=== PATIENT | male | born 1945 | race Caucasian/White ===

== ENCOUNTER 2024-06-24 08:56 | Emergency (ER) | payer MEDICARE, SELFPAY ==
[2024-06-24 09:00] VITALS: BP 124/62
--- NOTE | 2024-06-24 09:35 | ED.GENMED ---
History of Present Illness
<Ting Saleem PA-C - Last Filed: 06/25/24 01:14>
General
Chief Complaint: Fever
Source: patient
Exam Limitations: none
Time Seen by Provider: 06/24/24 09:14
Nursing documentation reviewed up to this point in time: agreed with
History of Present Illness
History of Present Illness:
Patient is a 78-year-old male with history hypertension, mitral valve repair, diverticulitis s/p colon resection presenting to the emergency department with 3 days of fever, chills, dry heaves, and diarrhea. Patient states dry heaves began
night shortly followed by fever on Tuesday. Fever has been as high as 101F at home. Patient also reports nonbloody diarrhea and vague upper abdominal pain. He has been unable to tolerate p.o. food/liquid since . has noticed a cough
over the past 2 days, as well.
No chest pain, shortness of breath, urinary symptoms.
No sick contacts. No recent travel.
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
Past History
<Ting Saleem PA-C - Last Filed: 06/25/24 01:14>
Past History
ED Past Medical History: HTN and Other
ED Past Surgical History: Cardiac (MV repair)
Social History
Tobacco: Non-smoker
Alcohol: None
Drug: None
Personal:
Living: with family
Employment: Retired
Review of Systems
<Ting Saleem PA-C - Last Filed: 06/25/24 01:14>
Review of Systems
Allergies reviewed?: Yes
All Other Systems: ROS reviewed and negative except as documented in HPI and ROS
Phy Exam
<Ting Saleem PA-C - Last Filed: 06/25/24 01:14>
Physical Exam
Physical Exam:
Vitals: Patient's vital signs are stable. Febrile to 101.6F
General: Patient is
Skin: Warm and dry, no rashes or lesions
Head: Normocephalic, atraumatic
Eyes: Sclera nonicteric. EOMs intact. No nystagmus.
Throat: Protecting airway
Neck: Normal ROM, no cervical spine tenderness, no meningismus
Cardiac: Regular rate and rhythm, no murmurs.
Pulm: Normal respiratory effort, no wheezes, rales, rhonchi heard on exam.
Abdomen: Abdomen soft. Mild tenderness in epigastric region without rebound tenderness or guarding. No CVA tenderness.
Extremities: No evidence of cyanosis or edema. Palpable DP pulses bilaterally
Neuro: AAOx3. Grossly intact.
Psychiatric: Normal affect.
Course
<Ting Saleem PA-C - Last Filed: 06/25/24 01:14>
Orders/Labs/Results
Orders:
Orders
06/24/24 09:33
0.9% Sodium Chloride 1000 ml [Nss] 1,000 ml IV BOLUS
06/24/24 09:34
Acetaminophen [Tylenol] 1,000 mg PO NOW STA
06/24/24 09:35
CR Chest - 2 Views Urgent
Comment:
Reason For Exam: fever, cough
06/24/24 10:02
US Abdomen Complete/Upper Urgent
Comment:
Reason For Exam: epigastric pain, nausea
06/24/24 10:37
COVID-19 Antigen Urgent
Source: Nasal Swab
Complete Blood Count/With Diff Urgent
Comprehensive Metabolic Panel Urgent
Lactic Acid Q4H
Comment: CANCEL 2nd LACTIC ACID IF 1st LACTIC ACID IS LESS THAN 2
Lipase Urgent
Lyme Progressive Urgent
Comment: ADD ON
Urinalysis Reflex To Culture Urgent
Date Specimen was Collected: 06/24/24
Time Specimen was Collected: 10:00
Urine Microscopic Reflex Cult Urgent
Blood Culture Q30M
JENNIFER Source: Blood/Venous
Specimen Description:
Influenza A+B Rapid Molecular Urgent
JENNIFER Source: Nasal Swab
Specimen Description:
Urine Culture Urgent
JENNIFER Source: U
Specimen Description:
Date Specimen was Collected: 06/24/24
Time Specimen was Collected: 10:00
06/24/24 12:47
Blood Culture Q30M
JENNIFER Source: Blood/Venous
Specimen Description:
06/24/24 13:45
Add On- LAB Urgent
Tests Added?: Lyme progressive
CefTRIAXone [Rocephin] 1,000 mg IV NOW STA
06/24/24 14:33
STOOL [C difficile Antigen & Toxins] Urgent
JENNIFER Source: Feces/Stool
Specimen Description:
Date Specimen was Collected: 06/24/24
Time Specimen was Collected: 10:10
Stool Culture Urgent
JENNIFER Source: Feces/Stool
Specimen Description:
Date Specimen was Collected: 06/24/24
Time Specimen was Collected: 10:10
Abnormal Lab Results
06/24/24
10:37
RBC 4.26 L 10^6/uL
(4.70-6.10)
MCV 94.8 H fL
(80.0-94.0)
MCH 32.4 H pg
(27.0-31.0)
Plt Count 75 L 10^3/uL
(130-400)
MPV 11.0 H fL
(7.4-10.4)
Absolute Lymphs (auto) 0.4 L 10^3/uL
(1.2-3.4)
Neutrophils % 88.4 H %
(42.2-75.2)
Lymphocytes % 7.3 L %
(20.5-51.1)
Sodium 131 L mmol/L
(135-145)
BUN 27 H mg/dl
(9-20)
Creatinine 1.5 H mg/dL
(0.7-1.3)
Glucose 134 H mg/dl
(70-99)
Ur Occult Blood Reflex 4+ A
(Negative)
Urine Nitrite (Reflex) Positive A
(Negative)
Leukocyte Esterase Rfl 3+ A
(Negative)
Urine RBC 7-10 A /HPF
(0-2)
Urine WBC (Reflex) 40-50 A /HPF
(0-5)
Urine Bacteria (Reflex) Many A
(Negative)
Urine Albumin (Reflex) 3+ A
(Neg - Trace)
06/24/24 10:37
06/24/24 10:37
Vital Signs
Initial and Last Documented VS:
Initial Vital Signs
Temp Pulse Resp BP Pulse Ox
101.6 F H 68 16 124/62 96
06/24/24 09:00 06/24/24 09:00 06/24/24 09:00 06/24/24 09:00 06/24/24 09:00
Last Documented Vital Signs
Temp Pulse Resp BP Pulse Ox
99.5 F 68 16 101/62 94
06/24/24 12:10 06/24/24 09:00 06/24/24 09:00 06/24/24 12:30 06/24/24 12:45
<Devon Lowe MD - Last Filed: 06/24/24 17:03>
Orders/Labs/Results
Orders:
Orders
06/24/24 09:33
0.9% Sodium Chloride 1000 ml [Nss] 1,000 ml IV BOLUS
06/24/24 09:34
Acetaminophen [Tylenol] 1,000 mg PO NOW STA
06/24/24 09:35
CR Chest - 2 Views Urgent
Comment:
Reason For Exam: fever, cough
06/24/24 10:02
US Abdomen Complete/Upper Urgent
Comment:
Reason For Exam: epigastric pain, nausea
06/24/24 10:37
COVID-19 Antigen Urgent
Source: Nasal Swab
Complete Blood Count/With Diff Urgent
Comprehensive Metabolic Panel Urgent
Lactic Acid Q4H
Comment: CANCEL 2nd LACTIC ACID IF 1st LACTIC ACID IS LESS THAN 2
Lipase Urgent
Lyme Progressive Urgent
Comment: ADD ON
Urinalysis Reflex To Culture Urgent
Date Specimen was Collected: 06/24/24
Time Specimen was Collected: 10:00
Urine Microscopic Reflex Cult Urgent
Blood Culture Q30M
JENNIFER Source: Blood/Venous
Specimen Description:
Influenza A+B Rapid Molecular Urgent
JENNIFER Source: Nasal Swab
Specimen Description:
Urine Culture Urgent
JENNIFER Source: U
Specimen Description:
Date Specimen was Collected: 06/24/24
Time Specimen was Collected: 10:00
06/24/24 12:47
Blood Culture Q30M
JENNIFER Source: Blood/Venous
Specimen Description:
06/24/24 13:45
Add On- LAB Urgent
Tests Added?: Lyme progressive
CefTRIAXone [Rocephin] 1,000 mg IV NOW STA
06/24/24 14:33
STOOL [C difficile Antigen & Toxins] Urgent
JENNIFER Source: Feces/Stool
Specimen Description:
Date Specimen was Collected: 06/24/24
Time Specimen was Collected: 10:10
Stool Culture Urgent
JENNIFER Source: Feces/Stool
Specimen Description:
Date Specimen was Collected: 06/24/24
Time Specimen was Collected: 10:10
Abnormal Lab Results
06/24/24
10:37
RBC 4.26 L 10^6/uL
(4.70-6.10)
MCV 94.8 H fL
(80.0-94.0)
MCH 32.4 H pg
(27.0-31.0)
Plt Count 75 L 10^3/uL
(130-400)
MPV 11.0 H fL
(7.4-10.4)
Absolute Lymphs (auto) 0.4 L 10^3/uL
(1.2-3.4)
Neutrophils % 88.4 H %
(42.2-75.2)
Lymphocytes % 7.3 L %
(20.5-51.1)
Sodium 131 L mmol/L
(135-145)
BUN 27 H mg/dl
(9-20)
Creatinine 1.5 H mg/dL
(0.7-1.3)
Glucose 134 H mg/dl
(70-99)
Ur Occult Blood Reflex 4+ A
(Negative)
Urine Nitrite (Reflex) Positive A
(Negative)
Leukocyte Esterase Rfl 3+ A
(Negative)
Urine RBC 7-10 A /HPF
(0-2)
Urine WBC (Reflex) 40-50 A /HPF
(0-5)
Urine Bacteria (Reflex) Many A
(Negative)
Urine Albumin (Reflex) 3+ A
(Neg - Trace)
06/24/24 10:37
06/24/24 10:37
Vital Signs
Initial and Last Documented VS:
Initial Vital Signs
Temp Pulse Resp BP Pulse Ox
101.6 F H 68 16 124/62 96
06/24/24 09:00 06/24/24 09:00 06/24/24 09:00 06/24/24 09:00 06/24/24 09:00
Last Documented Vital Signs
Temp Pulse Resp BP Pulse Ox
99.5 F 68 16 101/62 94
06/24/24 12:10 06/24/24 09:00 06/24/24 09:00 06/24/24 12:30 06/24/24 12:45
<Ting Saleem PA-C - Last Filed: 06/25/24 01:14>
MDM/Problems Addressed
Differential Diagnosis Includes:
Not limited to: Viral illness, gastroenteritis, pancreatitis, cholecystitis, diverticulitis, cystitis, etc.
MDM/Problems Addressed:
78-year-old male with history as documented presenting with three days of fever, chills, dry, heaves, and diarrhea. No chest pain or shortness of breath. Patient febrile, otherwise with stable vital signs on arrival. He is normotensive. Physical
exam as above. Abdomen soft with some vague, mild epigastric tenderness. Differential diagnosis broad at this time. ED course: Will check basic labs, lactic, urine, blood cultures. Will check abdominal ultrasound. IV fluids and Tylenol.
Update: Labs reviewed. Thrombocytopenia noted, which is a decrease from most recent lab work. Mild renal insufficiency noted which appears relatively stable. Lactic normal. No other abnormalities on chemistry. Abdominal ultrasound without acute
findings. On re-examination � abdomen is soft and non-tender throughout. Overall low suspicion for acute infectious pathology given no leukocytosis and benign abdominal exam. Did offer CT scan for further evaluation although pt declines. Urine
appears infected although the patient does report chronic colonization with history of colovesicular fistula. However, no other infectious ideology identified and unable to exclude complicated acute UTI/pyelonephritis with presenting symptoms .
Patient does not meet SIRs/sepsis criteria. I recommended admission for IV antibiotics to treat complicated UTI pending both urine & blood cultures. Patient adamant that he would like to go home. He is aware of risks associated, including worsening
illness. He is aware that if blood cultures result positive he will neeed to return to the emergency department. Will give IV rocephin in ED and discharge with antibiotics to cover for potential pyelonephritis. Discussed importance of repeating lab
with PCP given thrombocytopenia and renal insufficiency.
Update: He did expressed concern for possible recent tick bite prior to discharge � tickborne illness could potentially be contributing to patient symptoms considered fever and thrombocytopenia. Will send lyme titer. Otherwise stick with plan as
above. Patient expressed verbal understanding. Case seen with attending physician.
Chronic conditions affecting care:
Hypertension, diverticulitis s/p partial colon resection
Acute Exacerbation and/or Progression of Chronic Illness:
Acute on chronic UTI
<Ting Saleem PA-C - Last Filed: 06/25/24 01:14>
*Radiology
Radiology exam reviewed: preliminary read by ED provider (CXR reviewed by ms - no acute abnormalities) and radiology read reviewed
*Pulse Oximetry
Patient hypoxic: no
*EKG
Interpreted by ED Provider?: NA
*Bung Dropper Interpretation
Rate: normal
Interpretation: normal
Heart Rate: 68
Rhythm: sinus
*Critical Care Note
Total Time (30-74mins, 75-104mins- exclusive of procedures): Not Applicable
<Ting Saleem PA-C - Last Filed: 06/25/24 01:14>
Patient Management
Escalation/DeEscalation of care consider admission/obs:
Recommended admission for IV abx for suspected complicated UTI/pyelo although patient declines
ED Attending Note
<Ting Saleem PA-C - Last Filed: 06/25/24 01:14>
-
Portions of this chart may have been created with voice recognition software.� Occasional wrong word or��sound alike� substitutions may have occurred due to the inherent limitations of voice recognition software.
<Devon Lowe MD - Last Filed: 06/24/24 17:03>
ED Attending Note
Patient seen and examined by attending physician: Yes
ED Attending Note:
Patient with history of diverticulitis, requiring resection secondary to development of abscess and colovesicular fistula, presents to ED secondary to 4-day history of chills, abdominal pain, body ache, and decreased appetite. Denies vomiting but
reports nausea sensation along with intermittent episodes of loose bowel movements. Denies sick contact. Denies recent travel. Denies recent change in medications or diet. Denies previous history of similar symptoms. Secondary to colovesicular
fistula, patient does report chronic 'foul-smelling urine', as he has been told that there is chronic colonization.
Physical Exam
General: mild distress, not acutely ill. afebrile.
Head: nc/at. eomi
Neck: supple. normal range of motion.
Heart: s1/s2 regular rate and rhythm, no murmur
Lungs: no acute respiratory distress. clear bilaterally
Abdomen: normal bowel sounds. mild epigastric/RUQ tenderness to palpation
Neuro: alert and oriented x 3. no focal neurological deficits
Skin: no rash
Psychiatric: well kept. interactive and cooperative
Extremities: no edema. no calf tenderness.
Abdominal ultrasound report reviewed and discussed with patient and family. Repeat abdominal exam: Soft and nontender. Blood work report reviewed and discussed with patient and spouse, including thrombocytopenia and acute renal failure. Discussed
treatment options, including admission to the hospital for IV antibiotics, with concern for potential pyelonephritis. However, at this time, patient prefers to be discharged home with oral antibiotics. Patient will follow-up with his PCP for
reevaluation, including repeat blood work, or return to ED with worsening symptoms.
Lyme titer pending. Blood culture pending.
Discharge Plan
Departure
Patient Disposition: Home (Routine Discharge)
Date of Disposition: 06/24/24
Time of Disposition: 14:05
Patient with high blood pressure during this ER visit?: No
Condition: Good
Covid-19: Negative COVID-19
Discharge Problem:
Acute pyelonephritis, Fever, Thrombocytopenia
Instructions: Fever, Adult (DC), Urinary tract infection in adults - ED discharge instructions
Prescriptions:
New
cefpodoxime 200 mg tablet
200 mg PO BID 7 Days Qty: 14 0RF
No Action
tamsulosin 0.4 mg Capsule
0.4 mg PO DAILY
metoprolol succinate 25 mg Capsule,Sprinkle,Er 24hr
25 mg PO DAILY
diazepam [Valium] 5 mg tablet
5 mg PO HS PRN (Reason: muscle spasm) Qty: 10 0RF
Referrals:
Vickey Adame MD [Family Provider] - Follow up in 5-7 days
Activity Restrictions/Additional Instructions:
RETURN TO THE EMERGENCY DEPARTMENT WITH FEVER, CHILLS, WEAKNESS, SEVERE ABDOMINAL OR BACK PAIN, INTRACTABLE NAUSEA/VOMITING, SIGNS OF SEVERE DEHYDRATION, OR ANY OTHER CONCERNS
- As discussed�your urine appears infected today and given associated fever, nausea and back pain�there is a concern that this is a developing kidney infection. You were given a dose of IV antibiotics in the emergency department. The remainder of
oral antibiotics have been sent to your pharmacy. You should start this tomorrow and take twice a day for the next 7 days.
- It is important to stay well-hydrated. If you are unable to tolerate p.o. intake�you should return to the emergency department.
- As discussed�your platelets were low in the emergency department. You also were found to have mildly elevated kidney function. You should have your labs repeated with your primary care in 1 week to ensure improving.
- We will contact you if your blood cultures result positive as you will need to return to the emergency department. We will contact you if your Lyme test is positive.
- Follow-up with primary care early next week for further evaluation/management to ensure that symptoms are improving
Monitor your symptoms closely and return department with any acute worsening/new symptoms or any other concerns
Interventions
Interventions:
*Risk Screen - Suicide Last Done: 06/24/24 10:05
*General Assessment Last Done: 06/24/24 10:05
*Neglect/Abuse Screening Last Done: 06/24/24 10:05
*ED- Fall Risk Assessment Last Done: 06/24/24 10:05
*Nursing Disposition Last Done: 06/24/24 14:15
ED- Neurological Assessment Last Done: 06/24/24 10:05
ED- Pulmonary Assessment Last Done: 06/24/24 10:05
ED-Skin Assessment Last Done: 06/24/24 10:05
Discharge Date and Time
Discharge Date/Time: 06/24/24 14:15
Print Language: KINYARWANDA
[2024-06-24] MEDS: TYLENOL 1000 MG PO (10:46)
[2024-06-24] MEDS: NSS 1000 IV (10:48)
[2024-06-24 11:02] LABS: % Basophils 0.2 % (0-2); % Immature Granulocytes 0.4 % (0-0.5); % Lymphocytes 7.3 % (20.5-51.1); % Monocytes 3.7 % (1.7-9.3); % Neutrophils 88.4 % (42.2-75.2); Absolute Lymphocytes 0.4 10^3/uL (1.2-3.4); Absolute Monocytes 0.2 10^3/uL (0.1-0.6); Absolute Neutrophils 4.6 10^3/uL (1.4-6.5); Hematocrit 40.4 % (39.0-52.0); Hemoglobin 13.8 g/dL (13.0-18.0); Mean Corp Hgb Conc. 34.2 g/dL (33.0-37.0); Mean Corpuscular Hgb 32.4 pg (27.0-31.0); Mean Corpuscular Volume 94.8 fL (80.0-94.0); Nucleated Red Blood Cells % 0 % (-); Red Blood Cell Count 4.26 10^6/uL (4.70-6.10); Red Cell Dist. Width 11.9 % (11.5-14.5); White Blood Cell Count 5.2 10^3/uL (4.8-10.8)
[2024-06-24 11:10] LABS: ALT (SGPT) 28 U/L (0-50); AST (SGOT) 58 U/L (17-59); Albumin 3.9 g/dl (3.5-5.0); Alkaline Phosphatase 95 U/L (38-126); Blood Urea Nitrogen 27 mg/dl (9-20); Calcium 8.9 mg/dl (8.4-10.2); Carbon Dioxide 24 mmol/L (22-30); Chloride 99 mmol/L (98-107); Glucose 134 mg/dl (70-99); Lactic Acid 1.2 mmol/L (0.7-2.0); Lipase 211 U/L (23-300); Potassium 4.2 mmol/L (3.5-5.1); Sodium 131 mmol/L (135-145); Total Bilirubin 1.3 mg/dl (0.2-1.3); eGFR 47.65
[2024-06-24 11:18] LABS: Urine Albumin 3+ (Neg - Trace); Urine Bilirubin Negative (Negative); Urine Character Clear (Clear); Urine Color Yellow; Urine Glucose Negative (Negative); Urine Ketone Negative (Negative); Urine Leukocyte 3+ (Negative); Urine Nitrite Positive (Negative); Urine Occult Blood 4+ (Negative); Urine Specific Gravity 1.015 (<1.030); Urine Urobilinogen Negative (Neg - 1+)
[2024-06-24 11:20] LABS: COVID-19 Antigen Negative (Negative)
[2024-06-24 11:34] LABS: Urine Bacteria Many (Negative); Urine Squamous Cell 0-2 /LPF (Few); Urine White Cell 40-50 /HPF (0-5)
[2024-06-24 11:37] LABS: Platelet Count 75 10^3/uL (130-400)
[2024-06-24 12:30] VITALS: BP 101/62
[2024-06-24] MEDS: ROCEPHIN 1000 MG IV (14:25)
[2024-06-25 12:01] LABS: Lyme Antibody Screen, EIA Presump. Positive (Negative)
== END 2024-06-24 14:15 | disposition home or self-care (01) ==
LOC: EMR 08:56
PROVIDERS: Physician Assistant; EMERGENCY PHYSICIAN Emergency Medicine; FAMILY PHYSICIAN Internal Medicine
DX: N10 Acute pyelonephritis (principal); D69.6 Thrombocytopenia, unspecified; I10 Essential (primary) hypertension; Z90.49 Acquired absence of other specified parts of digestive tract; Z86.79 Personal history of other diseases of the circulatory system; Z11.52 Encounter for screening for COVID-19
CPT/HCPCS: 96374; 96361; 99284; 71046; 76700; 80053; 81003; 81015; 83605; 83690; 85025; 86617; 86618; 87040; 87045; 87046; 87086; 87324; 87427; 87449; 87502; 87811

== ENCOUNTER 2024-06-25 21:01 | Inpatient (IN) | payer MEDICARE, SELFPAY ==
[2024-06-25] VITALS (8 sets, daily range): BP systolic 98–155; BP diastolic 61–85; BMI 28.6
[2024-06-25 14:33] LABS: Hematocrit 39.6 % (39.0-52.0); Hemoglobin 13.5 g/dL (13.0-18.0); Mean Corp Hgb Conc. 34.1 g/dL (33.0-37.0); Mean Corpuscular Hgb 32.5 pg (27.0-31.0); Mean Corpuscular Volume 95.4 fL (80.0-94.0); Mean Platelet Volume 12.6 fL (7.4-10.4); Platelet Count 40 10^3/uL (130-400); Red Blood Cell Count 4.15 10^6/uL (4.70-6.10); Red Cell Dist. Width 12.3 % (11.5-14.5); White Blood Cell Count 3.7 10^3/uL (4.8-10.8)
[2024-06-25 14:44] LABS: Absolute Neutrophils -Man Diff 3.2 10^3/uL (1.4-6.5); Band Neutrophils 19 % (0-3); Lymphocytes 8 % (20-51); Metamyelocytes 1 % (-); Monocytes 4 % (2-9); Normal RBC Morphology Yes; Platelets Checked Yes; Segmented Neutrophils 68 % (42-75); Total Cells Counted 100
[2024-06-25 14:46] LABS: Lactic Acid 1.8 mmol/L (0.7-2.0)
[2024-06-25 15:08] LABS: ALT (SGPT) 32 U/L (0-50); AST (SGOT) 63 U/L (17-59); Albumin 3.6 g/dl (3.5-5.0); Alkaline Phosphatase 105 U/L (38-126); Blood Urea Nitrogen 23 mg/dl (9-20); Calcium 8.9 mg/dl (8.4-10.2); Carbon Dioxide 23 mmol/L (22-30); Chloride 102 mmol/L (98-107); Glucose 146 mg/dl (70-99); Potassium 4.6 mmol/L (3.5-5.1); Sodium 133 mmol/L (135-145); Total Bilirubin 1.2 mg/dl (0.2-1.3); Total Protein 6.5 g/dl (6.3-8.2); eGFR 47.65
--- NOTE | 2024-06-25 17:48 | ED.GENMED ---
History of Present Illness
General
Chief Complaint: Fever
Source: patient, records and spouse
Exam Limitations: none
Time Seen by Provider: 06/25/24 17:23
History of Present Illness
History of Present Illness:
78yoM with a history of hypertension, mitral valve repair, and prior colovesicular fistula presenting with his for evaluation of fever. Symptoms began about 4 days ago. He reports nausea, vomiting, body aches, fevers, and decreased p.o.
intake. He is also having some back discomfort which he attributes to a muscle strain. Tmax 101.7 at home. He was seen in the ED yesterday for the same and it was recommended that he be hospitalized. Patient ultimately declined but symptoms
persisted at home so he return to the ED for evaluation. He does admit to having 2 separate tick bites over the past 6 weeks. He has any prior history of Lyme disease. He has chronic foul-smelling urine due to the prior his fistula but denies any
active urinary symptoms currently.
Past History
Past History
ED Past Medical History: HTN and Other
ED Past Surgical History: Cardiac (MV repair)
Social History
Tobacco: Non-smoker
Alcohol: None
Drug: None
Personal:
Living: with family
Employment: Retired
Phy Exam
Physical Exam
Physical Exam:
Appears fatigued, non-toxic
General Physical Exam
General Presentation: no apparent distress
General Skin: warm and dry
General Habitus: normal and elderly
General Mental: alert
ENT Exam
ENT Exam: neck supple, normocephalic and other (No meningismus )
Cardiovascular Exam
Cardiovascular Exam: regular rate/rhythm
Pulmonary Exam
Pulmonary Exam: lungs clear, no respiratory distress, no rales, no crackles, no rhonchi and no wheezing
Gastrointestinal Exam
Gastrointestinal Exam: non tender, soft, non distended and no cva tenderness
Neurological Exam
Neurological Exam: alert
Matt Coma Scale
Eye Opening: Spontaneous
Verbal Response: Oriented
Motor Response: Obeys Commands
GCS Total Score: 15
Skin Exam
Skin Exam: normal color and warm/dry
Psychiatric Exam
Psychiatric Exam: normal mood/affect
Course
Orders/Labs/Results
Orders:
Orders
06/25/24 14:12
Complete Blood Count/With Diff Urgent
Comprehensive Metabolic Panel Urgent
Glycohemoglobin (HgbA1c) Urgent
Lactate Level [Lactic Acid] Urgent
Manual Differential Urgent
06/25/24 17:45
0.9% Sodium Chloride 500 ml [Nss] 500 ml IV BOLUS
CefTRIAXone [Rocephin] 2,000 mg IV NOW STA
06/25/24 17:50
Anaplasma phagocytophila IgG/M [S] Urgent
Babesia microti Abs, IgG/IgM [S] Urgent
Ehrlichia chaffeensis Ab Panel [S] Urgent
Blood Parasites Urgent
JENNIFER Source: Blood/Venous
Specimen Description:
06/25/24 18:30
Add On- LAB Urgent
Tests Added?: [id number]
06/25/24 19:37
Urinalysis Reflex To Culture Urgent
Date Specimen was Collected: 06/25/24
Time Specimen was Collected: 19:35
Abnormal Lab Results
06/25/24
14:12
WBC 3.7 L 10^3/uL
(4.8-10.8)
RBC 4.15 L 10^6/uL
(4.70-6.10)
MCV 95.4 H fL
(80.0-94.0)
MCH 32.5 H pg
(27.0-31.0)
Plt Count 40 L D 10^3/uL
(130-400)
MPV 12.6 H fL
(7.4-10.4)
Band Neutrophils 19 H %
(0-3)
Lymphocytes (Manual) 8 L %
(20-51)
Sodium 133 L mmol/L
(135-145)
BUN 23 H mg/dl
(9-20)
Creatinine 1.5 H mg/dL
(0.7-1.3)
Glucose 146 H mg/dl
(70-99)
AST 63 H U/L
(17-59)
06/25/24 14:12
06/25/24 14:12
Vital Signs
Initial and Last Documented VS:
Initial Vital Signs
Temp Pulse Resp BP Pulse Ox
99.3 F 80 18 149/83 95
06/25/24 14:02 06/25/24 14:02 06/25/24 14:02 06/25/24 14:02 06/25/24 14:02
Last Documented Vital Signs
Temp Pulse Resp BP Pulse Ox
99.3 F 80 18 98/61 95
06/25/24 14:02 06/25/24 14:02 06/25/24 14:02 06/25/24 19:00 06/25/24 19:34
MDM/Problems Addressed
Differential Diagnosis Includes:
78yoM here with fevers, body aches, nausea x 4 days. Seen in the ED yesterday for the same and left AMA. Diagnosed with pyelonephritis although urine culture grew out mixed contaminants. Vitals are stable. He appears fatigued but is nontoxic. No
focal signs of infection on exam. Differential diagnosis includes but is not limited to: Tickborne illness, viral illness, UTI, bacteremia initial ED plan:
Basic labs obtained in triage. Platelet count down to 40 from 74 yesterday. Patient able to show me his outpatient blood work from last month and platelets were normal at that time. Bandemia noted of 19%. Blood cultures from yesterday with NGTD
x 24 hours. Lyme panel from yesterday presumed positive. Blood parasite testing as well as Ehrlichia/Anaplasma/Babesiosis testing sent. IV Rocephin ordered and patient admitted for further management.
*Critical Care Note
Total Time (30-74mins, 75-104mins- exclusive of procedures): Not Applicable
ED Attending Note
-
Portions of this chart may have been created with voice recognition software.� Occasional wrong word or��sound alike� substitutions may have occurred due to the inherent limitations of voice recognition software.
Discharge Plan
Departure
Patient Disposition: Admit
Date of Disposition: 06/25/24
Time of Disposition: 17:52
Presentation/result/management discussed w/ accepting MD/DO: Hospitalist
Discharge Problem:
Sepsis, Thrombocytopenia
Prescriptions:
No Action
tamsulosin 0.4 mg Capsule
0.4 mg PO DAILY
cefpodoxime 200 mg tablet
200 mg PO BID 7 Days Qty: 14 0RF
Rx Instructions:
patient to start 06/24/24 for 7 days
acetaminophen [Tylenol] 325 mg Tablet
650 mg PO Q6HPRN PRN (Reason: mild pain)
ferrous sulfate 325 mg (65 mg iron) Tablet
325 mg PO DAILY
vitamin B complex [B Complete] Tablet
1 tab PO DAILY
allopurinol 300 mg Tablet
300 mg PO DAILY
metoprolol succinate [Toprol XL] 25 mg Tablet Extended Release 24 Hr
25 mg PO DAILY
valsartan 40 mg Tablet
40 mg PO BID
Referrals:
Vickey Adame MD [Family Provider] -
Interventions
Interventions:
*Risk Screen - Suicide Last Done: 06/25/24 14:02
*General Assessment Last Done: 06/25/24 14:02
*Neglect/Abuse Screening Last Done: 06/25/24 17:35
*ED- Fall Risk Assessment Last Done: 06/25/24 17:35
*ED COVID-19 Vaccine History Last Done: 06/25/24 17:35
ED- Neurological Assessment Last Done: 06/25/24 17:35
ED-Skin Assessment Last Done: 06/25/24 17:35
Discharge Date and Time
Print Language: COMORAN
[2024-06-25] MEDS: NSS 500 IV (17:55)
[2024-06-25] MEDS: ROCEPHIN 2000 MG IV (17:55)
--- NOTE | 2024-06-25 18:30 | HPS.HSE ---
Family Physician
-
Family Physician: Vickey Adame
Chief Complaint
-
5 days fever, chills, dry heaves, urinary frequency, watery diarrhea, right flank pain patient also with history of 2 tick bites in the past 6 weeks
History of Present Illness
78-year-old male with 5-day history of fever, chills, dry heaves, urinary frequency with watery diarrhea . The patient had dry heaves, rigors and right flank pain that started on night 5 days ago after gardening outside all day. He
reports he thought he strained his back and had ice on it but then developed rigors. By the a.m. he was having difficulty walking to the bathroom he had rigors and fever with Tmax 101F at home.. He also reports urinary frequency along with
nonbloody watery diarrhea every time he voids he states. He has a decreased oral intake and has lost 8 pounds over the past 5 days 165 LBS to 157 LBS . The patient also reported a concern for recent tick bites to bilateral thighs x 2 over the past
6 weeks and had Lyme titer sent yesterday. Both ticks were removed one was engorged however there is no rash or joint pain appreciated. 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 He was seen yesterday in the ER 06/24/2024 but left AMA he was given cefpodoxime 200 mg twice daily for 7
days. He took 1 dose of his oral antibiotic this a.m.. He returns today 06/25/2024 Due to persistent symptoms at home. 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 He denies headache, stiff neck, blurred
vision, chest pain, palpitations, shortness of breath,
He has past medical history of sepsis secondary to ruptured diverticulitis requiring colovesicular fistula repair, Lyme disease, He did test positive for Lyme's yesterday in the ER however he has he has history of Lyme disease 20 years ago causing
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
HTN, BPH, gout.
Medical History
Past Medical History
Past Medical History: Reports Other
Additional Past Medical History:
Hypertension
Gout
BPH
Neuropathy
Chronic back pain
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
MV repair 2020
DJD
Impaired vision wears glasses
Iron deficiency
Past Surgical History: Reports Other
Additional Past Surgical History:
Colon resection secondary to diverticulitis
Mitral valve repair 2020
Bilateral TKR
Shoulder repair
Social History
Tobacco: Non-smoker
Alcohol: None
Drug: None
Personal:
Living: With Family ()
Employment: Retired
Family History
Family History: Not pertinent
Allergies / Home Medications
Allergies reflects when Allergies were last updated in [facility].
Home Medications with original date entered in [facility]
Allergy/Medication List:
Allergies
Allergy/AdvReac Type Severity Reaction Status Date / Time
aspirin Allergy facial Verified 06/25/24 14:03
swelling
rivaroxaban [From Xarelto] Allergy Hives Verified 06/25/24 14:03
Home Medications
tamsulosin 0.4 mg capsule 0.4 mg PO DAILY 11/06/22
cefpodoxime 200 mg tablet 200 mg PO BID 7 days #14 tabs 06/24/24
acetaminophen 325 mg tablet (Tylenol) 650 mg PO Q6HPRN PRN mild pain 06/25/24
allopurinol 300 mg tablet 300 mg PO DAILY 06/25/24
ferrous sulfate 325 mg (65 mg iron) tablet 325 mg PO DAILY 06/25/24
metoprolol succinate 25 mg tablet,extended release 24 hr (Toprol XL) 25 mg PO DAILY 06/25/24
valsartan 40 mg tablet 40 mg PO BID 06/25/24
vitamin B complex 1 tab PO DAILY 06/25/24
Review of Systems
-
History Source: Patient
A 12 point ROS was completed and negative except as noted: Yes
Constitutional: Reports Fever, Weight Loss (8 pounds past 5 days), Fatigue and Chills
EENT: Denies Tearing or Runny Nose
Respiratory: Denies Cough or Trouble Breathing
Cardiac: Denies Chest Pain, Diaphoresis, Palpitations or Syncope
Abdomen/GI: Reports Nausea, Vomiting and Diarrhea (Watery); Denies Abdominal Pain or Constipated
: Reports Frequency and Flank Pain (Right); Denies Dysuria, Incontinence or Difficulty Voiding
Musculoskeletal: Denies Joint Pain, Joint Swelling or Edema
Skin: Reports Other (2 visible murphy on right and left thigh from prior tick bite no surrounding bull's-eye or rash); Denies Itching or Rash
Neurological: Reports Weakness (Generalized); Denies Dizzy or Headache
Endocrine: Reports No Symptoms
Hematologic/Lymphatic: Reports No Symptoms
Psych: Reports Calm
Physical Exam
Vital Signs
Vital Signs
Temp Pulse Resp BP Pulse Ox
99.3 F 80 18 114/67 96
06/25/24 14:02 06/25/24 14:02 06/25/24 14:02 06/25/24 17:26 06/25/24 17:45
Physical Exam
General: Conversant and Chills
HEENT: NormoCephalic, Anicteric, PERRLA, [place] Conjunctivae and No Ptosis
Respiratory: Clear; No Wheezes, Rales or Rhonchi
Cardiac: S1/S2 and Regular Rhythm; No Murmur, Rub, Gallop or Peripheral Edema
Breast: Deferred by me
GI: Soft, Non Tender, Non Distended, Normal Bowel Sounds and No Hepatosplenomegaly
Rectal: Deferred by Provider
Genito-urinary: Costovertebral angle tend (Right flank pain)
Musculoskeletal: No Clubbing, No Cyanosis and No Edema
Skin: Warm, Dry and Other (2 visible murphy on right and left thigh from prior tick bite no surrounding bull's-eye or rash); No Rash, Jaundice or Ulcers
Neuro: AO x 3, No Motor Deficits, Cranial Nerves Intact and No Sensory Deficits; No Slurred Speech, Facial Droop, Tremors or Sedated
Psych: Calm
Laboratory Results
-
06/25/24 14:12
06/25/24 14:12
Laboratory Results
Lactic Acid 1.8 mmol/L (0.7-2.0) 06/25/24 14:12
Total Bilirubin 1.2 mg/dl (0.2-1.3) 06/25/24 14:12
AST 63 U/L (17-59) H 06/25/24 14:12
ALT 32 U/L (0-50) 06/25/24 14:12
Alkaline Phosphatase 105 U/L (38-126) 06/25/24 14:12
Data Reviewed
-
Lab Data: Labs Reviewed by me
Impression/Plan
-
Impression/plan:
Admit to telemetry
#Acute symptomatic UTI with concern for possible pyelonephritis
#BPH Hx
Symptoms x 1 week urinary frequency with right flank pain, watery diarrhea left AMA yesterday 06/24/2024 with temp 101.6 F, took 1 dose of cefpodoxime
Temp today 99.3F, WBC 3.7, 19% band count
- IV Rocephin
-Continue tamsulosin 0.4 mg daily
- Urine culture from yesterday mixed contaminant
-Check CT abdomen pelvis with oral and IV contrast
-IV NSS 500 cc given in ER, continue IV NSS at 80 cc an hour
- Stool studies were negative from yesterday 06/24/2024
#Acute leukopenia/thrombocytopenia reactive in setting of Lyme disease /UTI with possible Pyelonephritis
#Acute thrombocytopenia likely reactive in setting of acute pyelonephritis
Plt 40 <74 yesterday 06/24/2024
- Follow CBC
#Lyme positive
#History of remote Lyme disease 20 years ago causing spinal meningitis than 15 years ago both presenting with stiff neck, joint pain
2 visible tick bites bilateral left and right thighs no surrounding bull's-eye or rash no joint pain or swelling
- Western blot pending
-- Blood parasite testing added
-- Continue IV Rocephin
- Babesia, Ehrlichia, Anaplasma
#DEMETRIUS 2/2 vomiting, diarrhea, decreased oral intake
Creat 1.5 stable from yesterday
-Hold valsartan 40 mg twice daily
-IV NSS 500 cc given in ER, continue IV NSS at 80 cc an hour
- Follow BMP
#Mild hyperglycemia
- Blood sugar 146 was 134 yesterday will check HgbA1c
#HTN
BP 114/67
-Continue valsartan 40 mg twice daily, metoprolol succinate 25 mg daily with hold parameters
#Gout
-Continue allopurinol 300 mg daily
# Sepsis secondary to ruptured diverticulitis requiring colovesicular fistula repair
Other PMH:
Neuropathy
Mitral valve repair 2020
DVT prophylaxis
SCDs as platelets are currently 40
Full code
[2024-06-25 19:52] LABS: Urine Albumin 3+ (Neg - Trace); Urine Bilirubin Negative (Negative); Urine Character Slightly Cloudy (Clear); Urine Color Yellow; Urine Glucose Negative (Negative); Urine Ketone Negative (Negative); Urine Leukocyte 2+ (Negative); Urine Nitrite Negative (Negative); Urine Occult Blood 3+ (Negative); Urine Urobilinogen Negative (Neg - 1+)
[2024-06-25] MEDS: OMNIPAQUE 50 ML PO (20:05)
--- NOTE | 2024-06-25 20:06 | W.PN.UPDATE ---
Update Note
Progress Note Update
This is an addendum to the H&P written by Marilyn Sherman on 06/25/2024.� Patient seen and examined independently with DIRECTOR BUSINESS MANAGEMENT.
78-year-old male past medical history of Lyme disease 20 years ago complicated by spinal meningitis, Lyme's disease again 15 years ago, colovesicular fistula s/p surgery, presenting with right flank pain after doing gardening.� Chills and rigors and
101 temp.� Dry heaves.� Also watery diarrhea.� Patient without joint pains or rash.� Patient with urinary frequency chronic.
He came to the emergency room yesterday and was diagnosed with acute right-sided pyelonephritis started on ceftriaxone but patient left AMA.� He was tested for Lyme's with positive Lyme screen and Western blot pending.
Labs show leukopenia, thrombocytopenia.� DEMETRIUS with creatinine 1.5.� AST elevation of 63.� Urinalysis yesterday showed 40-50 WBC, positive nitrates, leukocyte esterase. Urine culture contaminated.
Parasite smear pending.� Anaplasmosis, Babesia, ehrlichiosis, antibodies pending.
Patient with likely Lyme's disease.� Patient with UTI, possible pyelonephritis on the right side.� Await Western blot.� ID consulted.� IV fluids.� Ceftriaxone which we will treat UTI/pyelonephritis as well as Lymes. �
Hold losartan due to DEMETRIUS.
Stool studies yesterday negative Cdif, culture pending.�
[2024-06-25] MEDS: NSS 1000 IV (20:18)
[2024-06-25 20:57] LABS: Urine Bacteria Moderate (Negative); Urine Hyaline Cast 0-2 /LPF (0-2); Urine White Cell 26-30 /HPF (0-5)
[2024-06-25] MEDS: MELATONIN 5 MG PO (23:05)
[2024-06-26] VITALS (15 sets, daily range): BP systolic 91–130; BP diastolic 45–81; O2SAT 94
[2024-06-26] MEDS: TYLENOL 650 MG PO ×3 (00:46→12:27)
[2024-06-26 06:37] LABS: Hematocrit 33.2 % (39.0-52.0); Hemoglobin 11.6 g/dL (13.0-18.0); Mean Corp Hgb Conc. 34.9 g/dL (33.0-37.0); Mean Corpuscular Volume 94.6 fL (80.0-94.0); Platelet Count 31 10^3/uL (130-400); Red Blood Cell Count 3.51 10^6/uL (4.70-6.10); Red Cell Dist. Width 12.1 % (11.5-14.5); White Blood Cell Count 3.5 10^3/uL (4.8-10.8)
[2024-06-26 06:39] LABS: ALT (SGPT) 30 U/L (0-50); AST (SGOT) 57 U/L (17-59); Alkaline Phosphatase 76 U/L (38-126); Blood Urea Nitrogen 22 mg/dl (9-20); Calcium 8.1 mg/dl (8.4-10.2); Carbon Dioxide 23 mmol/L (22-30); Chloride 104 mmol/L (98-107); Estimated Creatinine Clearance 44 ml/min; Glucose 110 mg/dl (70-99); Potassium 4.5 mmol/L (3.5-5.1); Sodium 132 mmol/L (135-145); Total Bilirubin 0.8 mg/dl (0.2-1.3); Total Protein 5.6 g/dl (6.3-8.2); eGFR 56.58
[2024-06-26 07:48] LABS: Absolute Neutrophils -Man Diff 2.5 10^3/uL (1.4-6.5); Band Neutrophils 14 % (0-3); Lymphocytes 24 % (20-51); Monocytes 4 % (2-9); Normal RBC Morphology Yes; Platelets Checked Yes; Segmented Neutrophils 58 % (42-75); Total Cells Counted 100
[2024-06-26] MEDS: ZYLOPRIM 300 MG PO (08:00)
[2024-06-26] MEDS: FEOSOL 325 MG PO (08:00)
[2024-06-26] MEDS: B COMPLEX w/VITAMIN C 1 CAPLET PO (08:00)
[2024-06-26] MEDS: FLOMAX 0.4 MG PO (08:00)
[2024-06-26] MEDS: TOPROL XL 25 MG PO (08:01)
[2024-06-26] MEDS: NSS 1000 IV (08:02)
--- NOTE | 2024-06-26 08:47 | W.PN.HOSP.TC ---
Today's Communication/Plan
-
IVF. IV and oral antibiotics
Assessment / Plan
Assessment / Plan
Physical exam:
General: Acutely ill
HEENT: Normocephalic, Atraumatic and Moist Mucous Membranes
Respiratory: Clear to Auscultation; Negative Wheezes, Rales or Rhonchi
Cardiac: Regular Rhythm and S1/S2
GI: Soft, Nontender and Nondistended
Musculoskeletal: No Clubbing, No Cyanosis and No Edema. No rashes appreciated but mostly hyperpigmentation on leg
Neuro: Awake, Alert and Oriented
Psych: Calm
A/P:
Febrile illness:
Unclear etiology but possibility of tickborne illness
Anaplasma and Ehrlichia testing per ID
Babesia smear rather than serology
Lyme test remain positive for years-he has history of Lyme in the past more than 2 decades ago
Continue IV ceftriaxone and added doxycycline
ID consult appreciated
Abnormal UA in the setting of colovesicular surgery:
Follow-up culture
ID on board
Renal insufficiency:
On IV fluids creatinine went from 1.5 down to 1.3
Avoid nephrotoxic
On IVF
Monitor renal function
Pancytopenia:
Likely infectious etiology but if not improvement might need to consider hematology involvement but agree given the acuity and fevers that an infectious process is more likely
Hyponatremia:
Monitor trend
Elevated LFTs:
Trending down already
DVT prophylaxis:
SCDs
No pharmacological prophylaxis due to thrombocytopenia
CODE STATUS:
Full code
Total time spent on today's encounter was 52 minutes which included time spent in counseling the patient/family regarding diagnosis and treatment plan as listed above, goals of care, and symptom management. Case was discussed with nursing staff,
specialists, and care coordinators/case management. All labs and imaging personally reviewed by me. Remainder the time spent in detailed review of previous records, lab data, imaging, and other medical provider documentation.
Anticipated Discharge: > 48 hours
Subjective/Interval History
-
Date of Service: June 26, 2024
Patient with some nausea. No chest pain or shortness of breath. No dysuria. No cough.
Objective Data
-
Labs:
Laboratory Results
06/26/24
06:04
WBC 3.5 L
Hgb 11.6 L
Hct 33.2 L
Plt Count 31 L D
Sodium 132 L
Potassium 4.5
Chloride 104
Carbon Dioxide 23
BUN 22 H
Creatinine 1.3
Glucose 110 H
Calcium 8.1 L
Total Bilirubin 0.8
AST 57
ALT 30
Alkaline Phosphatase 76
Vital Signs:
Vital Signs
Temp Pulse Resp BP Pulse Ox
99.3 F 80 18 111/47 94
06/26/24 07:00 06/25/24 14:02 06/25/24 14:02 06/26/24 00:00 06/26/24 01:29
I&O
06/25/24 06/26/24 06/27/24
06:59 06:59 06:59
Intake Total 980 / 980
Output Total 1050 / 1050
Balance -70 / -70
[2024-06-26 09:21] LABS: Glycohemoglobin (HgbA1c) 5.9 % (4.0-5.6)
--- NOTE | 2024-06-26 11:06 | CON.ID ---
Consultation
-
Date/Time Consultation Requested: 06/25/24 22:28
Date/Time Consultation Performed: 06/25/24 11:06
Requesting Provider: Lane PAULA
Performing Provider: Dr Berrios
Reason for Consultation: 5 days fever, chills, dry heaves, urinary frequency, watery diarrhea, right
Chief Complaint / Past History
Chief Complaint
fevers, chills
History of Present Illness
Mr Bazan is a 78 year old male with history of ruptured diverticulitis requiring colovesicular fistula repair at [facility] 15 years ago, who presented here last night for a 5 day history of fever, chills, dry heaves, urinary frequency, right flank pain
and watery diarrhea. Reports that foul smelling urine is his baseline, doesnt have recurrent UTIs. Diarrhea is nonbloody. Poor oral intake. He is a law enforcement officer. Reports two NON-engorged ticks were removed from his legs in the last 6 weeks. He has
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 Of note 06/24 he was prescribed a dose of ceftriaxone followed by cefpodoxime 200 mg twice daily for 7 days by the ER. He took 1 dose of his oral antibiotic yesterday. He denies headache, stiff neck, blurred
vision, chest pain, palpitations and shortness of breath.
Since arrival here patient has been febrile to 102.1, bp overall stable, wbc 3.7, hgb 13.5, plt 40 declined from 75 on arrival yesterday, cr 1.5 initially with unknown baseline, now cr 1.3, CT a/p with IV and oral contrast: incidentally pancreatic
cystic lesion
Past History
Additional Past Medical History:
Prior Lyme disease
Hypertension
Gout
BPH
Neuropathy
Chronic back pain
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
MV repair 2020
DJD
Impaired vision wears glasses
Iron deficiency
Additional Past Surgical History:
Colon resection secondary to diverticulitis
Mitral valve repair 2020
Bilateral TKR
Shoulder repair
Allergy History:
aspirin Allergy (Verified 06/25/24 14:03)
facial swelling
rivaroxaban [From Xarelto] Allergy (Verified 06/25/24 14:03)
Hives
Medications Reviewed: Yes
Social History
Tobacco: Non-Smoker
Alcohol: None
Drug: None
Family History
Family History: Not Pertinent
Review of Systems
Review of Systems
General: Fever and Chills
All systems: All other systems were reviewed and were negative (except as listed in HPI)
Vital Signs
Temp Pulse Resp BP Pulse Ox
99.3 F 57 22 112/67 94
06/26/24 07:00 06/26/24 08:00 06/26/24 05:45 06/26/24 08:00 06/26/24 09:32
Physical Exam
Physical Exam
Constitutional: Acutely Ill
Cardiovascular: Regular Rate and S1/S2; Negative Murmur or Rub
Pulmonary: Clear and Symmetric; Negative Wheezes, Rales or Rhonchi
Gastrointestinal: Soft, Non Tender, Non Distended and Normal Bowel Sounds
Skin: Warm, Dry and Other (post inflammatory hyperpigmentation noted on the posterior R thigh, no bullseye rashes); Negative Rash or Jaundice
Lab / Diagnostic Study Results
06/26/24 06:04
06/26/24 06:04
Total Counted 100 06/26/24 06:04
Abs Neuts (Manual) 2.5 10^3/uL (1.4-6.5) 06/26/24 06:04
Segmented Neutrophils 58 % (42-75) 06/26/24 06:04
Band Neutrophils 14 % (0-3) H D 06/26/24 06:04
Lymphocytes (Manual) 24 % (20-51) 06/26/24 06:04
Lactic Acid 1.8 mmol/L (0.7-2.0) 06/25/24 14:12
Ur Squamous Epith Cells 6-10 /LPF (Few) 06/25/24 19:37
Microbiology Results
Micro:
06/25/24 17:50 Blood Parasites Smear - Preliminary
Blood/Venous
06/25/24 19:37 Urine Culture - Pending
Urine
Laboratory Tests
06/24/24
10:37
Lyme Screen IgG & IgM Presump. positive
Lyme IgG (Western Blot) Pending
Lyme IgM Ab (WB) Pending
SARS-CoV-2 Antigen Negative
Assessment / Plan
Fevers and Systemic Symptoms
Thrombocytopenia, mild hyponatremia, minimal transaminitis
H/o of colovesical surgery - reportedly with repair however symptoms are chronic
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
- given chronic urinary symptoms, wonder if fistula repair was successful, he reports no recurrent UTIs, if polymicrobial urine culture then will explore further
- follow up urine culture
- anaplasma and ehrlichia PCR to be sent out - I ordered
- serologies of less value than PCR for anaplasma/ehrlichia but have already been drawn; also could be positive from previous infection, to confirm outpatient convalescent serologies would be needed in 2 weeks
- no benefit to babesia serology given that smear can be done in house - attempted to cancel
- lyme serologies can be positive for decades after previous known infection, will need to interpret in the overall clinical context as further information is available
- check QTc
- continue ceftriaxone pending urine culture, add doxycycline (anaplasma/ehrlichia coverage), if babesia smear is finalized positive then will add atovaquone/azithromycin, preliminary smear is negative
- hold oral iron
[2024-06-26] MEDS: VIBRAMYCIN 100 MG PO ×2 (12:27→20:24)
[2024-06-26] MEDS: ROCEPHIN 1000 MG IV (17:38)
[2024-06-26] MEDS: STERILE WATER FOR INJECTION 10 ML IV (17:38)
[2024-06-26] MEDS: FLORASTOR 250 MG PO (17:48)
--- NOTE | 2024-06-26 18:00 | PTCARENOTE ---
Pt received from ED and walked to bed with minimal assistance. @bedside. Pt is AAOx3 and NOATAK which says pt will not admit. VSS. Pt complaining of intense nausea and dry heaving. PRN zofran ordered, but pt declined. IV abx given. Pt resting
in bed, now denies nausea. Call stewart within reach, will continue to monitor.
[2024-06-26] MEDS: MELATONIN 5 MG PO (21:01)
--- NOTE | 2024-06-26 23:30 | PTCARENOTE ---
Patient states he is feeling short of breath. Patient's pulse ox was 89% on room air. Patient was on 2 L via nasal cannula the previous night. This RN put him onto the 2 L via nasal cannula. Patient's pulse ox was back up to 97%. Patient states he
is no longer short of breath. [employer] Aspen Baptiste notified. Will continue to monitor.
[2024-06-27 05:46] LABS: Hematocrit 32.6 % (39.0-52.0); Hemoglobin 11.2 g/dL (13.0-18.0); Mean Corp Hgb Conc. 34.4 g/dL (33.0-37.0); Mean Corpuscular Hgb 32.7 pg (27.0-31.0); Platelet Count 26 10^3/uL (130-400); Red Blood Cell Count 3.43 10^6/uL (4.70-6.10); Red Cell Dist. Width 12.2 % (11.5-14.5); White Blood Cell Count 4.4 10^3/uL (4.8-10.8)
[2024-06-27 05:52] VITALS: BMI 25.6
[2024-06-27 06:55] LABS: ALT (SGPT) 40 U/L (0-50); AST (SGOT) 63 U/L (17-59); Albumin 2.9 g/dl (3.5-5.0); Alkaline Phosphatase 106 U/L (38-126); Blood Urea Nitrogen 24 mg/dl (9-20); Calcium 8.5 mg/dl (8.4-10.2); Carbon Dioxide 23 mmol/L (22-30); Chloride 105 mmol/L (98-107); Estimated Creatinine Clearance 44 ml/min; Glucose 102 mg/dl (70-99); Sodium 135 mmol/L (135-145); Total Bilirubin 0.6 mg/dl (0.2-1.3); Total Protein 5.5 g/dl (6.3-8.2); eGFR 56.58
[2024-06-27 07:05] VITALS: BP 132/68
[2024-06-27] MEDS: FLORASTOR 250 MG PO ×2 (07:56→20:42)
[2024-06-27] MEDS: B COMPLEX w/VITAMIN C 1 CAPLET PO (07:56)
[2024-06-27] MEDS: FLOMAX 0.4 MG PO (07:56)
[2024-06-27] MEDS: ZYLOPRIM 300 MG PO (07:56)
[2024-06-27] MEDS: VIBRAMYCIN 100 MG PO ×2 (07:56→20:42)
[2024-06-27] MEDS: TOPROL XL PO (07:59)
[2024-06-27 08:10] LABS: Band Neutrophils 2 % (0-3); Lymphocytes 44 % (20-51); Monocytes 9 % (2-9); Platelets Checked Yes; Segmented Neutrophils 45 % (42-75)
[2024-06-27 08:11] LABS: Normal RBC Morphology Yes; Total Cells Counted 100
--- NOTE | 2024-06-27 09:07 | W.PN.HOSP.TC ---
Today's Communication/Plan
-
Antibiotics. Monitor CBC
Assessment / Plan
Assessment / Plan
Physical exam:
General: Acutely ill
HEENT: Normocephalic, Atraumatic and Moist Mucous Membranes
Respiratory: Clear to Auscultation; Negative Wheezes, Rales or Rhonchi
Cardiac: Regular Rhythm and S1/S2
GI: Soft, Nontender and Nondistended
Musculoskeletal: No Clubbing, No Cyanosis and No Edema. No rashes appreciated but mostly hyperpigmentation on leg
Neuro: Awake, Alert and Oriented
Psych: Calm
A/P:
Febrile illness:
Unclear etiology but possibility of tickborne illness
Anaplasma and Ehrlichia testing per ID
Babesia smear rather than serology
Lyme test remain positive for years-he has history of Lyme in the past more than 2 decades ago
Discontinue IV ceftriaxone and continue oral doxycycline
ID consult appreciated
ID recommends one more day of of monitoring
Abnormal UA in the setting of colovesicular surgery:
Follow-up culture
ID on board
Renal insufficiency:
On IV fluids creatinine went from 1.5 down to 1.3
Avoid nephrotoxic
On IVF
Monitor renal function
Pancytopenia:
Likely infectious etiology but given worsening thrombocytopenia will involve hematology
Platelet count down to 26
Hyponatremia:
Monitor trend
Elevated LFTs:
Trending down already
DVT prophylaxis:
SCDs
No pharmacological prophylaxis due to thrombocytopenia
CODE STATUS:
Full code
Anticipated Discharge: Within 24 hours
Subjective/Interval History
-
Date of Service: June 27, 2024
Fever appears to be subsiding. No active bleeding. No nausea vomiting or diarrhea today
Objective Data
-
Labs:
Laboratory Results
06/27/24
05:20
WBC 4.4 L
Hgb 11.2 L
Hct 32.6 L
Plt Count 26 L*
Sodium 135
Potassium 4.0
Chloride 105
Carbon Dioxide 23
BUN 24 H
Creatinine 1.3
Glucose 102 H
Calcium 8.5
Total Bilirubin 0.6
AST 63 H
ALT 40
Alkaline Phosphatase 106
Vital Signs:
Vital Signs
Temp Pulse Resp BP Pulse Ox
97.5 F 45 17 134/68 98
06/27/24 07:05 06/27/24 07:59 06/27/24 07:05 06/27/24 07:59 06/27/24 07:05
I&O
06/26/24 06/27/24 06/28/24
06:59 06:59 06:59
Intake Total 980 / 980 1200 / 1200
Output Total 1050 / 1050
Balance -70 / -70 1200 / 1200
--- NOTE | 2024-06-27 09:29 | CON.ONC ---
Consultation
-
Date Consultation Requested: 06/27/24 ([id number])
Date Consultation Performed: 06/27/24 (560)
Requesting Provider: Paula
Performing Provider: Joe
Reason for Consultation: pancytopenia
Impression
Impression
Pancytopenia, acute
Fever, infectious disease w/u underway
Plan
Plan
Febrile illness is of unclear etiology but possibility of tickborne illness. ID consult appreciated
Pancytopenia is acute. CBC last month normal makes hematologic cause unlikely. mostly reactive from primary infectious process.
Monitor CBC for now as sole maneuver.
Patient History
History of Present Illness
78 year old male who presented 06/25 for a 5 day history of fever, chills, dry heaves, urinary frequency, right flank pain and watery diarrhea. He is a insights manager. Reports 2 ticks were removed from his legs in the last 6 weeks. He has a history of
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
Since arrival Tm 102.1, CBC: 4.4 > 11.2 < 26, PLT declined from 75 on arrival. No bleeding. Outpt labs 05/15 at [facility] 9.5 > 13.4 < 261
Past-Medical/Surgical History
PMH:
Prior Lyme disease
Hypertension
Gout
BPH
Neuropathy
Chronic back pain
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
MV repair 2020
DJD
Impaired vision wears glasses
Iron deficiency
Past Surgical History:
Colon resection secondary to diverticulitis
Mitral valve repair 2020
Bilateral TKR
Shoulder repair
Allergy History:
Social History
Tobacco: Non-Smoker
Alcohol: None
Drug: None
Family History
Family History: Not Pertinent
Patient Medication
�Medication �Instructions �Recorded �Confirmed �Last Taken �Type
tamsulosin 0.4 mg capsule 0.4 mg PO DAILY Urinary Issue 11/06/22 06/25/24 06/25/24 History
acetaminophen 325 mg tablet 650 mg PO Q6HPRN PRN mild pain 06/25/24 06/25/24 06/25/24 History
(Tylenol)
allopurinol 300 mg tablet 300 mg PO DAILY Gout 06/25/24 06/25/24 Unknown History
ferrous sulfate 325 mg (65 mg 325 mg PO DAILY Supplement 06/25/24 06/25/24 Unknown History
iron) tablet
metoprolol succinate 25 mg 25 mg PO DAILY Blood Pressure 06/25/24 06/25/24 06/25/24 History
tablet,extended release 24 hr
(Toprol XL)
valsartan 40 mg tablet 40 mg PO BID Blood Pressure 06/25/24 06/25/24 06/25/24 History
vitamin B complex 1 tab PO DAILY Supplement 06/25/24 06/25/24 Unknown History
cefpodoxime 200 mg tablet 200 mg PO BID Infection 06/26/24 06/25/24 06/25/24 History
Active Medications
Generic Name Dose Route Start Last Admin
Trade Name Freq PRN Reason Stop Dose Admin
Acetaminophen 650 mg 06/25/24 22:28 06/26/24 12:27
Acetaminophen 325 Mg Tablet PO 07/23/24 22:27 650 mg
Q4HPRN PRN Administration
mild pain/CHRISTIAN/temp> 100.4F
Allopurinol 300 mg 06/26/24 08:00 06/27/24 07:56
Allopurinol 300 Mg Tablet PO 07/24/24 07:59 300 mg
DAILY NANCY Administration
Ceftriaxone Sodium 1,000 mg 06/26/24 18:00 06/26/24 17:38
Ceftriaxone 1000 Mg / 10 Ml Vial IV 1,000 mg
Q24H NANCY Administration
Doxycycline Hyclate 100 mg 06/26/24 12:00 06/27/24 07:56
Doxycycline 100 Mg Capsule PO 100 mg
Q12 NANCY Administration
Ferrous Sulfate 325 mg 06/26/24 08:00 06/26/24 08:00
Ferrous Sulfate 325 Mg Tablet PO 07/24/24 07:59 325 mg
DAILY NANCY Administration
Melatonin 5 mg 06/25/24 22:00 06/26/24 21:01
Melatonin 5 Mg Tablet PO 07/23/24 21:59 5 mg
HS NANCY Administration
Metoprolol Succinate 25 mg 06/26/24 08:00 06/27/24 07:59
Metoprolol 25 Mg Extended Release Tablet PO 07/24/24 07:59 Not Given
DAILY NANCY
Ondansetron HCl 4 mg 06/26/24 13:12
Ondansetron 4 Mg/2 Ml Vial IV 07/24/24 13:11
Q6HPRN PRN
NAUSEA/VOMITING
Saccharomyces Boulardii 250 mg 06/26/24 17:35 06/27/24 07:56
Saccharomyces Boulardi (Florastor) 250 Mg Capsule PO 07/24/24 17:34 250 mg
BID NANCY Administration
Sodium Chloride 0 flush 06/25/24 22:00
Sodium Chloride 0.9% (Flush) Syringe IV 07/23/24 21:59
PER PROTOCOL NANCY
Sterile Water 10 ml 06/26/24 18:00 06/26/24 17:38
Sterile Water For Injection 10 Ml Vial IV 07/24/24 17:59 10 ml
Q24H NANCY Administration
Tamsulosin HCl 0.4 mg 06/26/24 08:00 06/27/24 07:56
Tamsulosin 0.4 Mg Capsule PO 07/24/24 07:59 0.4 mg
DAILY NANCY Administration
Vitamin B Complex/Vitamin C 1 caplet 06/26/24 08:00 06/27/24 07:56
Vitamin B Complex With Vitamin C Caplet PO 07/24/24 07:59 1 caplet
DAILY NANCY Administration
Review of Systems
-
Constitutional: Reports Fever and Night Sweats
: Reports Dysuria
Physical Exam
-
General: Well Developed, Well Nourished and No Apparent Distress
HEENT: Negative Jaundice
Cardiology: S1 and S2
Pulmonary: Clear; Negative Wheezes
GI: Soft
Extremities: No C/C/E
Neurology: Non Focal
Labs
Lab Results
WBC 4.4 10^3/uL (4.8-10.8) L 06/27/24 05:20
RBC 3.43 10^6/uL (4.70-6.10) L 06/27/24 05:20
Hgb 11.2 g/dL (13.0-18.0) L 06/27/24 05:20
Hct 32.6 % (39.0-52.0) L 06/27/24 05:20
MCV 95.0 fL (80.0-94.0) H 06/27/24 05:20
MCH 32.7 pg (27.0-31.0) H 06/27/24 05:20
MCHC 34.4 g/dL (33.0-37.0) 06/27/24 05:20
RDW 12.2 % (11.5-14.5) 06/27/24 05:20
Plt Count 26 10^3/uL (130-400) L* 06/27/24 05:20
MPV Not Reportable 06/27/24 05:20
Creatinine 1.3 mg/dL (0.7-1.3) 06/27/24 05:20
Vital Signs
Vital Signs
Temp Pulse Resp BP Pulse Ox
97.5 F 45 17 134/68 98
06/27/24 07:05 06/27/24 07:59 06/27/24 07:05 06/27/24 07:59 06/27/24 07:05
--- NOTE | 2024-06-27 09:49 | W.PN.ID1 ---
Date of Service
Date of Service: June 27, 2024
Today's Communication
- pancytopenia may relate to tick born illness
- continue doxycycline
- stop ceftriaxone
- hold oral iron while on doxycycline
- Prefer to monitor clinically another day if patient agreeable, if not can plan two week duration of doxycycline
Assessment / Plan
Fevers and Systemic Symptoms
Thrombocytopenia, mild hyponatremia, minimal transaminitis
H/o of colovesical fistula repair
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
- pancytopenia may be realted to tick born illness
- urine culture negative
- anaplasma and ehrlichia PCR to be sent out - I ordered, confirmed with chemistry lab that it will be sent out today
- serologies of less value than PCR for anaplasma/ehrlichia but have already been drawn; also could be positive from previous infection, to confirm outpatient convalescent serologies would be needed in 2 weeks
- babesia smear negative; QTc was acceptable
- lyme serologies can be positive for decades after previous known infection, will need to interpret in the overall clinical context as further information is available
- continue doxycycline
- stop ceftriaxone
- hold oral iron while on doxycycline
- Prefer to monitor clinically another day if patient agreeable, if not can plan two week duration of doxycycline
Chief Complaint
-: Other (suspected anaplasma or ehrlichia)
Subjective / Review of Systems
fever resolving - did have night sweats last night, less than the night before
bp now consistently stable
was short of breath overnight and started on 2L however now on room air without dyspnea, note that he snores
myalgias, nausea, malaise all improved
Vital Signs / Physical Exam
Vital Signs
Vital Signs
Temp Pulse Resp BP Pulse Ox
97.5 F 45 17 134/68 98
06/27/24 07:05 06/27/24 07:59 06/27/24 07:05 06/27/24 07:59 06/27/24 07:05
Physical Exam
Constitutional: No Acute Distress
Cardiovascular: Regular Rate and S1/S2; Negative Murmur or Rub
Pulmonary: Clear and Symmetric; Negative Wheezes or Rales
Gastrointestinal: Soft, Non Tender, Non Distended and Normal Bowel Sounds
Skin: Warm and Dry; Negative Rash or Jaundice
Objective Data
Lab Data
Lab Results
06/27/24 05:20
06/27/24 05:20
Estimated Creat Clear 44 ml/min 06/27/24 05:20
Lactic Acid 1.8 mmol/L (0.7-2.0) 06/25/24 14:12
Total Bilirubin 0.6 mg/dl (0.2-1.3) 06/27/24 05:20
AST 63 U/L (17-59) H 06/27/24 05:20
ALT 40 U/L (0-50) 06/27/24 05:20
Alkaline Phosphatase 106 U/L (38-126) 06/27/24 05:20
Most recent labs reviewed.
Micro Results:
06/25/24 19:37 Urine Culture - Final
Urine NO GROWTH
06/25/24 17:50 Blood Parasites Smear - Final
Blood/Venous
[2024-06-27 14:57] VITALS: BP 125/71
[2024-06-27] MEDS: MELATONIN 5 MG PO (20:45)
[2024-06-27 23:18] VITALS: BP 145/85
--- NOTE | 2024-06-28 05:46 | DOWNTIME ---
There was a [employer] Client Wardrobe Custodian Downtime on 06/28/2024 from 0200 to 06/29/2023 at 0318 . Downtime documentation of patient's care, including medication administrations, has been reconciled in the electronic record per guidelines. Refer to the
patient's paper chart under the miscellaneous tab to see printed paper medication records and downtime forms.
[2024-06-28 06:00] VITALS: BMI 25.5
[2024-06-28 06:53] LABS: Hematocrit 33.4 % (39.0-52.0); Hemoglobin 11.4 g/dL (13.0-18.0); Mean Corp Hgb Conc. 34.1 g/dL (33.0-37.0); Mean Corpuscular Hgb 32.4 pg (27.0-31.0); Mean Corpuscular Volume 94.9 fL (80.0-94.0); Platelet Count 50 10^3/uL (130-400); Red Blood Cell Count 3.52 10^6/uL (4.70-6.10); Red Cell Dist. Width 12.4 % (11.5-14.5); White Blood Cell Count 5.9 10^3/uL (4.8-10.8)
[2024-06-28 07:10] VITALS: BP 146/93
[2024-06-28 07:27] LABS: % Basophils 0.5 % (0-2); % Immature Granulocytes 0.5 % (0-0.5); % Lymphocytes 53.9 % (20.5-51.1); % Monocytes 8.3 % (1.7-9.3); % Neutrophils 35.8 % (42.2-75.2); Absolute Eosinophils 0.1 10^3/uL (0-0.7); Absolute Lymphocytes 3.2 10^3/uL (1.2-3.4); Absolute Monocytes 0.5 10^3/uL (0.1-0.6); Absolute Neutrophils 2.1 10^3/uL (1.4-6.5); Nucleated Red Blood Cells % 0 % (-)
[2024-06-28] MEDS: B COMPLEX w/VITAMIN C 1 CAPLET PO (08:19)
[2024-06-28] MEDS: FLOMAX 0.4 MG PO (08:19)
[2024-06-28] MEDS: ZYLOPRIM 300 MG PO (08:19)
[2024-06-28] MEDS: VIBRAMYCIN 100 MG PO (08:19)
[2024-06-28] MEDS: TOPROL XL 25 MG PO (08:19)
[2024-06-28] MEDS: FLORASTOR 250 MG PO (08:19)
--- NOTE | 2024-06-28 08:33 | W.PN.HOSP.TC ---
Today's Communication/Plan
-
Discharge planning today
Assessment / Plan
Assessment / Plan
Physical exam:
General: No acute distress
HEENT: Normocephalic, Atraumatic and Moist Mucous Membranes
Respiratory: Clear to Auscultation; Negative Wheezes, Rales or Rhonchi
Cardiac: Regular Rhythm and S1/S2
GI: Soft, Nontender and Nondistended
Musculoskeletal: No Clubbing, No Cyanosis and No Edema. No rashes appreciated but mostly hyperpigmentation on leg
Neuro: Awake, Alert and Oriented
Psych: Calm
A/P:
Febrile illness:
Unclear etiology but possibility of tickborne illness
Anaplasma and Ehrlichia testing per ID
Babesia smear rather than serology
Lyme test remain positive for years-he has history of Lyme in the past more than 2 decades ago
Discontinue IV ceftriaxone and continue oral doxycycline
Hold iron while on Doxy
ID consult appreciated
Discussed with ID and cleared for discharge today
Abnormal UA in the setting of colovesicular surgery:
Urine culture no growth
Renal insufficiency:
On IV fluids creatinine went from 1.5 down to 1.3
Avoid nephrotoxic
On IVF
Monitor renal function
Pancytopenia:
Likely infectious etiology but given worsening thrombocytopenia involved hematology
Platelet count up to 50 today
Hyponatremia:
Monitor trend as outpatient
Elevated LFTs:
Monitor trend as outpatient
DVT prophylaxis:
SCDs
No pharmacological prophylaxis due to thrombocytopenia
CODE STATUS:
Full code
Anticipated Discharge: Today
Subjective/Interval History
-
Date of Service: June 28, 2024
No new complaints.
Objective Data
-
Labs:
Laboratory Results
06/28/24
05:25
WBC 5.9
Hgb 11.4 L
Hct 33.4 L
Plt Count 50 L D
Vital Signs:
Vital Signs
Temp Pulse Resp BP Pulse Ox
97.3 F 70 16 146/93 98
06/28/24 07:10 06/28/24 08:19 06/28/24 07:10 06/28/24 08:19 06/28/24 07:10
I&O
06/27/24 06/28/24 06/29/24
06:59 06:59 06:59
Intake Total 1200 / 1200 1320 / 1320
Balance 1200 / 1200 1320 / 1320
--- NOTE | 2024-06-28 09:33 | W.DCSUMMARY ---
Discharge Summary
Discharge Data
Date of Admission: 06/25/24
Date of Discharge: 06/28/24
-
Pending Results: No
Hospital Course
Patient is 78 years old male history of colovesical fistula, gout, BPH, chronic back pain, iron deficiency anemia, came into the hospital with fevers. He has Lyme disease more than 20 years ago and treated appropriately and about 6 weeks ago he had
2 non-engorged takes removed from his legs and he was treated with a dose of ceftriaxone a couple of days prior to this admission followed by cefpodoxime and he came back with recurrent fevers. Patient was initiated on IV ceftriaxone. ID was
consulted. Patient had Lyme test positive but this is known to remain positive for a while. He had pancytopenia and elevated LFTs. ID added doxycycline. Babesia smear was negative. ID felt that anaplasmosis/ehrlichiosis are more likely the
reason for his recurrent fevers and will follow-up results as outpatient. Ceftriaxone was discontinued and ID recommends to continue oral doxycycline for 2 weeks and hold oral iron while on treatment. Patient was seen also by hematology who also
feels his pancytopenia is most likely infectious etiology. His platelet counts are improving. Patient has been afebrile. Patient is very eager to go home today. ID cleared him for discharge. He will be discharged in stable condition today.
Discharge duration: 35 minutes
Discharge Plan
-
Patient Disposition: Home (Routine Discharge)
Discharge Diagnosis/Procedures: Acute febrile illness suspicion for tickborne disease. Pancytopenia.
Diet: Low Cholesterol
Activity: As tolerated
Blood Work: Please PCP and or ID to order CBC, CMP within 1 week
Referrals:
Vickey Adame MD [Family Provider] - in less than 1 week
Judit Berrios MD [Active] - in two to four weeks
Prescriptions:
New
doxycycline hyclate 100 mg Capsule
100 mg PO Q12 14 Days Qty: 28 0RF
Continued
tamsulosin 0.4 mg Capsule
0.4 mg PO DAILY
acetaminophen [Tylenol] 325 mg Tablet
650 mg PO Q6HPRN PRN (Reason: mild pain)
vitamin B complex Tablet
1 tab PO DAILY
allopurinol 300 mg Tablet
300 mg PO DAILY
metoprolol succinate [Toprol XL] 25 mg Tablet Extended Release 24 Hr
25 mg PO DAILY
valsartan 40 mg Tablet
40 mg PO BID
Held
ferrous sulfate 325 mg (65 mg iron) Tablet
325 mg PO DAILY
Hold Instructions: Resume on 07/13/24.
Discontinued
cefpodoxime 200 mg tablet
200 mg PO BID
Rx Instructions:
patient to start 06/24/24 for 7 days
Discharge Orders:
Discharge Patient (As Directed); Ordered 06/28/24
Ordered By: Dominguez Mitchell
Discharge Date and Time
Discharge Date/Time: 06/28/24 10:47
Print Language: BELIZEAN
[2024-06-29 00:44] LABS: Babesia microti IgG < 1:16 (< 1:16); Babesia microti IgM <1:20 (<1:20)
[2024-06-29 09:42] LABS: Ehrlichia chaffeensis IgG Ab <1:64 (<1:64); Ehrlichia chaffeensis IgM Ab < 1:16 (< 1:16)
[2024-06-29 23:52] LABS: Anaplasma phagocytophilum IgG <1:80 (<1:80); Anaplasma phagocytophilum IgM < 1:16 (< 1:16)
== END 2024-06-28 10:47 | disposition home or self-care (01) | DRG 868 ==
LOC: 3 WEST ACU 21:01
PROVIDERS: Clinical Nurse Specialist Family Health; Physician Assistant; Student in an Organized Health Care Education/Training Program; ADMITTING PHYSICIAN Hospitalist; ATTENDING PHYSICIAN Hospitalist; CONSULT PHYSICIAN Internal Medicine Hematology & Oncology; EMERGENCY PHYSICIAN Emergency Medicine; FAMILY PHYSICIAN Internal Medicine; OTHER PHYSICIAN Student in an Organized Health Care Education/Training Program
DX: A79.82 Anaplasmosis [A. phagocytophilum] (principal); D61.818 Other pancytopenia; E87.1 Hypo-osmolality and hyponatremia; N17.9 Acute kidney failure, unspecified; I10 Essential (primary) hypertension; M10.9 Gout, unspecified; E61.1 Iron deficiency; G62.9 Polyneuropathy, unspecified; G89.29 Other chronic pain; N40.0 Benign prostatic hyperplasia without lower urinary tract symptoms; W57.XXXA Bitten or stung by nonvenomous insect and other nonvenomous arthropods, initial encounter; Z79.899 Other long term (current) drug therapy; Z86.19 Personal history of other infectious and parasitic diseases; Z86.61 Personal history of infections of the central nervous system; Z96.653 Presence of artificial knee joint, bilateral
CPT/HCPCS: 74177; 80053; 81003; 81015; 83036; 83605; 85025; 86666; 86753; 87015; 87086; 87207; 93005; 96361; 96374; 99285; Q9967